=== PATIENT | female | born 1990 | race Caucasian/White ===

== ENCOUNTER 2024-09-07 22:20 | Emergency (ER) | payer BC ==
[~2024-09-07] VITALS: Ht 177.8 cm; Wt 79.7 kg
[~2024-09-07 22:20] MED LIST: NO HOME MEDS; ONDA4TAB6 PO
[2024-09-07 23:34] LABS: BASOPHILS % (AUTO) 0.2 % (0-1); EOSINOPHILS % (AUTO) 0 % (0-6); HEMATOCRIT 39.4 % (35.0-45.0); HEMOGLOBIN 13.3 g/dl (12.0-16.0); LYMPHOCYTES # (AUTO) 0.6 X10'3 (1.1-4.8); LYMPHOCYTES % (AUTO) 5.9 % (21-51); MEAN CORPUSCULAR HEMOGLOBIN 31.8 PG (27.0-31.0); MEAN CORPUSCULAR HGB CONC 33.7 g/dL (33.0-36.5); MEAN CORPUSCULAR VOLUME 94.5 FL (78-98); MEAN PLATELET VOLUME 10.2 FL (7.4-10.4); MONOCYTES # (AUTO) 0.4 X10'3 (0-0.9); NEUTROPHILS # (AUTO) 9.7 X10'3 (1.8-7.7); NEUTROPHILS % (AUTO) 89.9 % (42-75); PLATELET COUNT 152 X10'3 (140-440); RED BLOOD COUNT 4.17 X10'6 (4.20-5.60); RED CELL DISTRIBUTION WIDTH 13.4 % (11.5-14.5); WHITE BLOOD COUNT 10.8 X10'3 (4.5-11.0)
[2024-09-07 23:39] LABS: BILIRUBIN,URINE NEGATIVE (Neg); CLARITY,URINE SLIGHTLY CLOUDY (Clear); COLOR,URINE YELLOW (Yellow); GLUCOSE, URINE NEGATIVE (Neg); KETONES,URINE NEGATIVE (Neg); LEUKOCYTE ESTERASE ,URINE SMALL (Neg); NITRITES, URINE POSITIVE (Neg); OCCULT BLOOD,URINE MODERATE (Neg); PROTEIN,URINE NEGATIVE (Neg); UROBILINOGEN,URINE 0.2 E.U/dL (0.2-1.0)
[2024-09-07 23:42] LABS: ALBUMIN 3.5 G/DL (3.4-5.0); ANION GAP 10 (8-16); BLOOD UREA NITROGEN 7 MG/DL (7-18); BUN/CREATININE RATIO 7.6 (10.0-20.0); CALCIUM 8.3 MG/DL (8.5-10.1); CHLORIDE 104 MMOL/L (99-107); CREATININE 0.92 MG/DL (0.40-0.90); GLUCOSE 152 MG/DL (70-104); POTASSIUM 3.7 MMOL/L (3.5-5.1); SODIUM 139 MMOL/L (135-145); TOTAL CARBON DIOXIDE 25.1 MMOL/L (24-32); eCRCL 95 ML/MIN; eGFR 71 ML/MIN
[2024-09-08] LABS: UA COLLECTION TYPE CLN CATCH MIDSTREAM
[2024-09-08 00:18] LABS: BACTERIA,URINE 4+ /HPF (Neg); MUCUS STRANDS NONE SEEN /LPF (Neg); SQUAMOUS EPITHELIAL CELL,UR FEW /LPF (FEW); TRANSITIONAL EPI CELLS,URINE FEW /HPF
[2024-09-08] MEDS: normal saline 1000ML IV soln IVB ONE ×2 (00:44→01:15)
[2024-09-08] MEDS: clindamycin 600mg/D5W 50ml 50 ML IV ONE (01:15)
[2024-09-08] MEDS: ondansetron/PF 4mg/2ml inj IV ONE (01:39)
[2024-09-08] MEDS: DOXYCYCLINE 100MG CAPSULE PO STA (01:39)
[2024-09-08] MEDS ORDERED: ONDA-245 PO (01:56)
[2024-09-08] MEDS ORDERED: METR-159 PO (01:56)
[2024-09-08] MEDS ORDERED: DOXY-460 PO (01:56)
[2024-09-08] MEDS: metroNIDAZOLE 500mg tablet PO ONE (01:57)
[2024-09-08] MEDS: ketorolac trometh 15mg/ml vial 15 MG/ML ML IV ONE (02:08)
[2024-09-08 02:28] VITALS: BP 116/61; PULSE 76; RESP 14; TEMP 98.2; O2SAT 96
== END 2024-09-08 02:30 | disposition home or self-care (01) ==
LOC: ER 22:22
DX: N73.0 Acute parametritis and pelvic cellulitis (principal); N39.0 Urinary tract infection, site not specified; R10.30 Lower abdominal pain, unspecified; Z88.1 Allergy status to other antibiotic agents; Z88.8 Allergy status to other drugs, medicaments and biological substances; Z79.2 Long term (current) use of antibiotics; Z79.899 Other long term (current) drug therapy
CPT/HCPCS: 36415; 80048; 81001; 83605; 84145; 85025; 87040; 87088; 87186; 93005; 96361; 96374; 96375; 99284; J1885; J2405; J3490; J7030; 81003; 87077

== ENCOUNTER 2024-09-08 10:27 | Emergency (ER) | payer BC ==
[~2024-09-08] VITALS: Ht 177.8 cm; Wt 80.1 kg
[~2024-09-08 10:27] MED LIST changes: +DOXY-460 PO; +METR-159 PO; +ONDA-245 PO
[2024-09-08] MEDS: ketorolac trometh 30MG/ML vial 30 MG/ML VIAL IM ONE (11:50)
[2024-09-08] MEDS: ondansetron 4mg rapidly disintigrating tab PO ONE (11:50)
[2024-09-08] MEDS: HYDROcodone/acetaminophen 10/325mg tab PO ONE (11:51)
[2024-09-08 12:28] LABS: BASOPHILS % (AUTO) 0.3 % (0-1); EOSINOPHILS % (AUTO) 0 % (0-6); HEMATOCRIT 40.6 % (35.0-45.0); HEMOGLOBIN 13.6 g/dl (12.0-16.0); LYMPHOCYTES # (AUTO) 0.5 X10'3 (1.1-4.8); LYMPHOCYTES % (AUTO) 8.1 % (21-51); MEAN CORPUSCULAR HEMOGLOBIN 31.6 PG (27.0-31.0); MEAN CORPUSCULAR HGB CONC 33.5 g/dL (33.0-36.5); MEAN CORPUSCULAR VOLUME 94.4 FL (78-98); MEAN PLATELET VOLUME 10.1 FL (7.4-10.4); MONOCYTES # (AUTO) 0.2 X10'3 (0-0.9); MONOCYTES % (AUTO) 3.6 % (2-12); PLATELET COUNT 155 X10'3 (140-440); RED CELL DISTRIBUTION WIDTH 13.6 % (11.5-14.5); WHITE BLOOD COUNT 6.8 X10'3 (4.5-11.0)
[2024-09-08 13:02] LABS: ALANINE AMINOTRANSFERASE 20 U/L (12-78); ALBUMIN 3.2 G/DL (3.4-5.0); ALKALINE PHOSPHATASE 66 IU/L (46-116); ANION GAP 7 (8-16); ASPARTATE AMINO TRANSFERASE 15 U/L (10-37); BILIRUBIN,TOTAL 0.5 MG/DL (0.1-1.0); BLOOD UREA NITROGEN 2 MG/DL (7-18); BUN/CREATININE RATIO 3.3 (10.0-20.0); C-REACTIVE PROTEIN 6.11 MG/DL (0.0-0.5); CALCIUM 8.2 MG/DL (8.5-10.1); CHLORIDE 107 MMOL/L (99-107); CREATININE 0.61 MG/DL (0.40-0.90); GLUCOSE 91 MG/DL (70-104); POTASSIUM 3.5 MMOL/L (3.5-5.1); SODIUM 139 MMOL/L (135-145); TOTAL CARBON DIOXIDE 24.6 MMOL/L (24-32); TOTAL PROTEIN 6.4 G/DL (6.4-8.2); eCRCL 143 ML/MIN; eGFR > 90 ML/MIN
[2024-09-08 13:05] LABS: BETA HCG,QUANTITATIVE < 1.0 mIU/ml
[2024-09-08 14:52] VITALS: BP 118/74; PULSE 63; RESP 16; TEMP 98.2; O2SAT 97
== END 2024-09-08 14:53 | disposition home or self-care (01) ==
LOC: ER 10:28
DX: R10.9 Unspecified abdominal pain (principal); Z20.822 Contact with and (suspected) exposure to COVID-19; R50.9 Fever, unspecified; Z88.1 Allergy status to other antibiotic agents; Z88.8 Allergy status to other drugs, medicaments and biological substances; Z79.2 Long term (current) use of antibiotics; Z79.899 Other long term (current) drug therapy
CPT/HCPCS: 36415; 80053; 83605; 84145; 84702; 85025; 85651; 86140; 87040; 87502; 87503; 87811; 96372; 99283; J1885